=== PATIENT | female | born 1940 | race Caucasian/White ===

== ENCOUNTER → 2020-02-25 | Outpatient (CLI) | payer MEDICARE, OTHER ==
[~2020-02-25] MED LIST: ALEN70TA66 PO; AMLO-150 PO; APIX5TAB PO; CHOL10003 PO; L.AC1CAP6 PO; LISI40TA PO; OMEG1CAP23 PO; PANT40TA6 PO; SIMV20OR PO; TRAZ50TA66 PO; VITA1TAB19 PO; lopressor PO
[2020-02-25 12:06] LABS: BASOPHILS % (AUTO) 1 % (0-1); EOSINOPHILS % (AUTO) 1 % (1-7); LYMPHOCYTES % (AUTO) 28 % (22-44); MEAN CORPUSCULAR HEMOGLOBIN 30.5 pg (27.0-34.8); MEAN PLATELET VOLUME 8.1 fL (7.4-10.4); MONOCYTES % (AUTO) 7 % (2-9); NEUTROPHILS % (AUTO) 63 % (42-75); PLATELET COUNT 214 x10^3/uL (130-400); RED BLOOD COUNT 4.76 x10^6/uL (3.82-5.3); RED CELL DISTRIBUTION WIDTH 13.8 % (9.6-15.2)
[2020-02-25 12:07] LABS: MD NO
[2020-02-25 12:08] LABS: INTERNATIONAL NORMALIZED RATIO 1.06 (0.93-1.1); PROTHROMBIN TIME 11.2 Seconds (9.6-11.5)
[2020-02-25 12:12] LABS: ALBUMIN 3.8 g/dL (3.4-5.0); ANION GAP 2 mmol/L (5-15); CALCIUM 8.9 mg/dL (8.5-10.1); CHLORIDE 109 mmol/L (98-107)
[2020-02-25 12:16] LABS: ALANINE AMINOTRANSFERASE 28 U/L (12-78); ALKALINE PHOSPHATASE 50 U/L (45-117); BILIRUBIN,TOTAL 1.5 mg/dL (0.2-1.0); CREATININE 0.83 mg/dL (0.55-1.02); TOTAL PROTEIN 7.2 g/dL (6.4-8.2)
== END | disposition home or self-care (01) ==
LOC: STAR 10:33
PROVIDERS: ATTEND Obstetrics & Gynecology
DX: Z01.812 Encounter for preprocedural laboratory examination (principal); Z20.828 Contact with and (suspected) exposure to other viral communicable diseases; R10.2 Pelvic and perineal pain; R19.09 Other intra-abdominal and pelvic swelling, mass and lump; I25.2 Old myocardial infarction; R94.31 Abnormal electrocardiogram [ECG] [EKG]
CPT/HCPCS: 71046; 80053; 85025; 85610; 85730; 86304; 87635; 93005

== ENCOUNTER 2020-03-02 11:00 | Day surgery (SDC) | payer MEDICARE, OTHER ==
[~2020-03-02] VITALS: Ht 157.5 cm; Wt 60.8 kg
[~2020-03-02 11:00] MED LIST changes: +BUPIVACAINE/PF 0.25% ONE; +EPINEPHRINE 1 MG/ML, 1ML ONE; +HEPARIN 1,000 UNITS/ML, 10ML ONE
[2020-03-02] MEDS ORDERED: CHLORHEXIDINE 15 ML UDC MM ONE (11:30)
[2020-03-02] MEDS ORDERED: LACTATED RINGERS 1,000 ML IV SCH (11:30)
[2020-03-02] MEDS ORDERED: CEFOTETAN PMX 2GM/50ML 50 ML IVPB ONE (11:30)
[2020-03-02 11:35] VITALS: BP 120/79
[2020-03-02] MEDS ORDERED: FENTANYL PF 250 MCG/5ML ONE (11:58)
[2020-03-02] MEDS ORDERED: DILTIAZEM 5 MG/ML, 5ML ONE (13:57)
[2020-03-02] MEDS ORDERED: BUPIVACAINE/PF-EPI 0.25% 1:200K INFIL ONE (14:26)
[2020-03-02] MEDS ORDERED: PROMETHAZINE 25 MG/ML, 1ML IV PRN (14:30)
[2020-03-02] MEDS ORDERED: ACETAMINOPHEN 325 MG TABLET PO PRN (14:30)
[2020-03-02] MEDS ORDERED: HYDROmorphone 2 MG/ML, 1ML IVPush PRN (14:30)
[2020-03-02] MEDS ORDERED: hydrALAzine 20 MG/ML, 1ML IV PRN (14:30)
[2020-03-02] MEDS ORDERED: OXYcodone 5 MG/5 ML ORAL.SOL UDC PO PRN (14:30)
[2020-03-02] MEDS ORDERED: ALBUTEROL SULFATE 2.5 MG/3 ML NPPB PRN (14:30)
[2020-03-02] MEDS ORDERED: KETOROLAC 30 MG/1 ML IV PRN (14:30)
[2020-03-02] MEDS ORDERED: LABETALOL 5MG/ML, 20ML IV PRN (14:30)
[2020-03-02] MEDS ORDERED: SUGAMMADEX 200 MG/2 ML IVPush ONE (15:14)
[2020-03-02] MEDS ORDERED: FENTANYL PF 100 MCG/2ML ONE ×2 (15:38→15:59)
[2020-03-02] MEDS ORDERED: ACETAMINOPHEN 650 MG/20.3 ML UDC ONE (15:38)
[2020-03-02] MEDS ORDERED: OXYcodone 5 MG/5 ML ORAL.SOL UDC ONE (15:38)
[2020-03-02] MEDS: FENTANYL PF 100 MCG/2ML IV PRN ×4 (15:48→16:06)
== END 2020-03-02 17:35 | disposition home or self-care (01) ==
LOC: OUT 11:00
PROVIDERS: ATTEND Obstetrics & Gynecology
DX: D27.1 Benign neoplasm of left ovary (principal); D27.0 Benign neoplasm of right ovary; K66.0 Peritoneal adhesions (postprocedural) (postinfection); K21.9 Gastro-esophageal reflux disease without esophagitis; E78.5 Hyperlipidemia, unspecified; G47.33 Obstructive sleep apnea (adult) (pediatric); I10 Essential (primary) hypertension; F32.9 Major depressive disorder, single episode, unspecified; I48.91 Unspecified atrial fibrillation; Z79.01 Long term (current) use of anticoagulants; Z79.899 Other long term (current) drug therapy; Z87.891 Personal history of nicotine dependence; Z86.73 Personal history of transient ischemic attack (TIA), and cerebral infarction without residual deficits; Z90.49 Acquired absence of other specified parts of digestive tract; Z96.641 Presence of right artificial hip joint; Z98.890 Other specified postprocedural states
CPT/HCPCS: 36415; 58661; 86850; 86900; 88305; 88311; J0171; J3010; J7120; J1644